=== PATIENT | female | born 1950 | race Caucasian/White ===

== ENCOUNTER 2025-03-10 22:47 | Emergency (ER) | payer MEDICARE, MEDICAID ==
[~2025-03-10] VITALS: Ht 152.4 cm; Wt 103.0 kg
[2025-03-10 23:01] VITALS: O2SAT 100
[2025-03-10] MEDS ORDERED: LEVETIRACETAM 500MG PREMIX 100 ML IV ONE (23:45)
[2025-03-10 23:56] VITALS: BP 134/48; PULSE 77; RESP 22; TEMP 37; O2SAT 97
== END 2025-03-11 01:39 | disposition left against medical advice (07) ==
LOC: ER 23:00 → CMPBEDREQ 03-12 13:40
DX: G40.909 Epilepsy, unspecified, not intractable, without status epilepticus (principal); R06.02 Shortness of breath
CPT/HCPCS: 93005; 99283